=== PATIENT | male | born 1995 | race African-American/Black ===

== ENCOUNTER 2017-09-05 03:58 | Emergency (ER) | payer MEDICAID ==
[~2017-09-05] VITALS: Ht 167.6 cm; Wt 77.3 kg
[2017-09-05] MEDS ORDERED: IBUPROFEN 600 MG TABLET PO ONE (04:45)
[2017-09-05 05:15] VITALS: BP 126/78
== END 2017-09-05 05:21 | disposition home or self-care (01) ==
LOC: EMS 03:59
DX: R07.89 Other chest pain (principal); F17.210 Nicotine dependence, cigarettes, uncomplicated
CPT/HCPCS: 93005; 99284; 99406